=== PATIENT | female | born 1940 | race Caucasian/White ===

== ENCOUNTER → 2018-11-06 | Outpatient (CLI) | payer MEDICARE, MEDICAID | END | disposition home or self-care (01) | LOC: CFH 08:40 | PROVIDERS: ATTEND Nurse Practitioner Family | DX: M85.88 Other specified disorders of bone density and structure, other site (principal); N95.9 Unspecified menopausal and perimenopausal disorder | CPT/HCPCS: 77080 ==

== ENCOUNTER 2020-09-15 13:44 | Emergency (ER) | payer MEDICARE, MEDICAID ==
[~2020-09-15] VITALS: Ht 162.6 cm; Wt 62.3 kg
[~2020-09-15 13:44] MED LIST: CITA10TA4 PO; CITA20TA6 PO; LAMO100T8 PO; LAMO5TB.6 PO; LEVE10007 PO; LEVE250T5 PO; LISI-167 PO; LISI2.5T PO; OMEP-110 PO; SIMV10TA18 PO; SIMV5TAB14 PO; TOPI100T8 PO; TOPI15CA10 PO; TRAZ-175 PO
[2020-09-15 14:47] LABS: BASOPHILS % (AUTO) 1 % (0-1); EOSINOPHILS % (AUTO) 1 % (1-7); LYMPHOCYTES % (AUTO) 29 % (22-44); MEAN CORPUSCULAR HEMOGLOBIN 28.5 pg (27.0-34.8); MEAN CORPUSCULAR HGB CONC 32.6 g/dL (32.4-35.8); MEAN PLATELET VOLUME 7.3 fL (7.4-10.4); MONOCYTES % (AUTO) 6 % (2-9); NEUTROPHILS % (AUTO) 63 % (42-75); PLATELET COUNT 480 x10^3/uL (130-400); RED BLOOD COUNT 4.09 x10^6/uL (3.82-5.3); RED CELL DISTRIBUTION WIDTH 13.6 % (9.6-15.2)
[2020-09-15 14:48] LABS: MD NO
[2020-09-15 14:56] LABS: ALBUMIN 2.4 g/dL (3.4-5.0); ANION GAP 7 mmol/L (5-15); CALCIUM 8.4 mg/dL (8.5-10.1); CHLORIDE 107 mmol/L (98-107)
[2020-09-15 15:01] LABS: ALANINE AMINOTRANSFERASE 14 U/L (12-78); ALKALINE PHOSPHATASE 94 U/L (45-117); BILIRUBIN,TOTAL 0.2 mg/dL (0.2-1.0); CREATININE 0.93 mg/dL (0.55-1.02); TOTAL PROTEIN 6.1 g/dL (6.4-8.2)
[2020-09-15 16:27] LABS: MICROSCOPIC AUTO
[2020-09-15 17:06] VITALS: BP 144/63
--- NOTE | 2020-09-15 17:06 | NUR ---
BREAK RN: PT RESTING COMFORTABLE ON GURNEY, RESPONDS APPROP TO STAFF, NAD, DAUGHTER AT BS, COMFORT MEASURES PROVIDED, CALL LIGHT WITHIN REACH.
[2020-09-15] MEDS ORDERED: LIDOCAINE-MPF 1%, 5ML ONE (17:11)
[2020-09-15] MEDS ORDERED: LIDOCAINE-MPF 1%, 5ML INFIL ONE (17:30)
== END 2020-09-15 17:52 | disposition home or self-care (01) ==
LOC: ED 16:30
DX: S01.311A Laceration without foreign body of right ear, initial encounter (principal); G40.409 Other generalized epilepsy and epileptic syndromes, not intractable, without status epilepticus; R55 Syncope and collapse; I10 Essential (primary) hypertension; X58.XXXA Exposure to other specified factors, initial encounter; Y93.89 Activity, other specified; Y92.89 Other specified places as the place of occurrence of the external cause; Y99.8 Other external cause status
CPT/HCPCS: 12051; 36415; 70450; 80053; 81001; 85025; 99284